=== PATIENT | male | born 1990 | race African-American/Black ===

== ENCOUNTER 2019-09-02 20:57 | Emergency (ER) | payer OTHER ==
[2019-09-02] MEDS ORDERED: Ketorolac Tromethamine 60 MG/2 ML VIAL ONE (21:33)
== END 2019-09-02 22:59 ==
LOC: ERS 20:57 → EEVIPCON 20:57 → ERS 22:59
DX: B34.9 Viral infection, unspecified (principal); M54.2 Cervicalgia
CPT/HCPCS: 87804; 96372; 99283; J1885